=== PATIENT | female | born 1990 | race Caucasian/White ===

== ENCOUNTER 2016-08-08 07:30 | Inpatient (IN) | payer BC ==
[~2016-08-08] VITALS: Ht 165.1 cm; Wt 71.7 kg
[2016-08-08 09:09] LABS: HEMOGLOBIN 11.9 gm/dl (12.3-15.3); RED BLOOD COUNT 3.84 M/UL (4.00-5.10)
[2016-08-09 02:55] LABS: HEMOGLOBIN 9.7 gm/dl (12.3-15.3)
[2016-08-10] MEDS ORDERED: COLACE 100MG C100 MG PO (10:58)
== END 2016-08-10 08:05 | disposition home or self-care (01) | DRG 775 ==
LOC: GENOP 07:30 → OB 08:15
PROVIDERS: ADMIT Obstetrics & Gynecology
PROC: 10E0XZZ Delivery of Products of Conception, External Approach (ICD-10-PCS; principal; 2016-08-08)
PROC: 10907ZC Drainage of Amniotic Fluid, Therapeutic from Products of Conception, Via Natural or Artificial Opening (ICD-10-PCS; 2016-08-08)
PROC: 0HQ9XZZ Repair Perineum Skin, External Approach (ICD-10-PCS; 2016-08-08)
DX: O70.0 First degree perineal laceration during delivery (principal); Z3A.37 37 weeks gestation of pregnancy; Z37.0 Single live birth
CPT/HCPCS: 36415; 81001; 82800; 85014; 85018; 85025; 85461; 86900; 86901; 90707; 90715; J2405; J2590; J3430; J7120